=== PATIENT | male | born 1955 | race African-American/Black ===

== ENCOUNTER 2017-04-24 07:16 | Observation (INO) | payer BC ==
--- NOTE | ~2017-04-24 | OR ---
Unit #: [id number] #: [id number] Patient: ANSLEY QUINONEZ [id number] [address] [address] [id number] MR#: [id number] NAME: ANSLEY QUINONEZ ROOM: [id number] Date of Procedure: 04/24/2017 Admission Date: 04/24/2017 Surgeon: Mihir Ernst M.D. : 1955 Attending Physician: Mihir Ernst M.D. Primary Care Physician: Neda Campa M.D. OPERATIVE REPORT PREOPERATIVE DIAGNOSIS Large abscess, left upper inner thigh. POSTOPERATIVE DIAGNOSIS Large abscess, left upper inner thigh. PROCEDURES PERFORMED Incision and drainage of large abscess of left upper inner thigh with sharp excisional debridement of skin and subcutaneous tissue, 10 x 8 cm. ANESTHESIA General LMA anesthesia with 0.5% Marcaine plain local anesthesia. FINDINGS A large abscess was present with necrotic fat and indurated erythematous overlying tissue. Sharp excisional debridement of skin and subcutaneous tissues was performed with good hemostasis. SPECIMENS Sent to Microbiology. COMPLICATIONS None apparent. CONDITION The patient tolerated the procedure well. INDICATIONS FOR PROCEDURE The patient is a 61-year-old white male, who presents at this time with an abscess of the left upper inner thigh. He presents at this time for incision and drainage and possible debridement. DESCRIPTION OF PROCEDURE After obtaining informed consent as well as receiving antibiotics, the patient was brought to the operating room and after adequate general LMA anesthesia was obtained, the head was placed very carefully in the lithotomy position using candy-cane stirrups. All pressure points were carefully padded. All extremities were carefully manipulated. The patient's left upper inner thigh was prepped and draped in a sterile fashion. He has a small opening that was draining purulent material. This was probed with a hemostat in full extent and the direction of the abscess cavity was identified. This was opened with a scalpel and using Unit #: [id number] #: [id number] Patient: ANLSEY QUINONEZ electrocautery with good hemostasis. The patient had a large abscess cavity, which contained necrotic fatty tissue. This was sharply excised and debrided with a scalpel and then the electrocautery was used with good hemostasis. A 10 x 8 cm area was debrided of skin and subcutaneous tissue. Hemostasis was obtained with the Bovie. All areas were infiltrated with 0.5% Marcaine plain local anesthesia. The wound was irrigated. It was packed with a saline soaked Kerlix. A dry dressing was applied followed by ABD pad and mesh panties. Needle counts, sponge counts, and instrument counts were all correct as reported by the scrub nurse x2. The patient went from the operative room to the recovery room in stable condition. Dictated by... Jonathan Hoff/jose TD: 04/25/2017 03:43 JOB #: [id number] CC: [facility] OPERATIVE REPORT Page 1 of 1 X Mihir Ernst MD X PROCEDURE OPERATIVE NOTE
--- NOTE | ~2017-04-24 | EKG ---
PATIENT: ANSLEY QUINONEZ UNIT #: [id number] Ventricular Rate: 78 BPM Atrial Rate: 78 BPM P-R Interval: 146 ms QRS Duration: 100 ms Q-T Interval: 374 ms QTC Calculation(Bezet): 426 ms P [place]: 44 degrees Calculated R [place]: 100 degrees Calculated T [place]: 23 degrees Diagnosis Line: Normal sinus rhythm Diagnosis Line: Rightward axis Diagnosis Line: Low voltage QRS Diagnosis Line: RSR' or QR pattern in V1 suggests right Diagnosis Line: ventricular conduction delay Diagnosis Line: Borderline ECG Diagnosis Line: No previous ECGs available Diagnosis Line: Confirmed by CLIFF MEAD MD ([id number]) on Diagnosis Line: 04/25/2017 6:39:52 AM INTERPRETING MD: PAVITHRA
[2017-04-24] MEDS ORDERED: FORTAMET1000 MG PO (07:38)
[2017-04-24] MEDS ORDERED: ALLOPURINOL300 MG PO (07:39)
[2017-04-24] MEDS ORDERED: INDOMETHACIN25 MG PO (07:39)
[2017-04-24] MEDS ORDERED: PRAVASTATIN SOD40 MG PO (07:39)
[2017-04-24] MEDS ORDERED: AMARYL PO (07:40)
[2017-04-24] MEDS ORDERED: LOSARTAN POTASS50 MG PO (07:40)
[2017-04-24] MEDS ORDERED: LANTUS100 U/ML SUBQ (07:41)
[2017-04-24] MEDS ORDERED: FARXIGA5 MG PO (07:41)
[2017-04-24] MEDS ORDERED: VOLTAREN75 MG PO (07:41)
[2017-04-24 09:09] LABS: BUN/CREATININE RATIO 14.54; CALCIUM SERUM 8.8 mg/dL (8.4-10.2); CREATININE SERUM 1.1 mg/dL (0.6-1.4); GLOM FILT RATE Estimated 84.7 mL/min (>60); POTASSIUM 4.8 mmol/L (3.5-5.1)
[2017-04-25 04:24] LABS: BUN/CREATININE RATIO 14.16; CALCIUM SERUM 8.5 mg/dL (8.4-10.2); CREATININE SERUM 1.2 mg/dL (0.6-1.4); GLOM FILT RATE Estimated 76.3 mL/min (>60); POTASSIUM 5.1 mmol/L (3.5-5.1)
[2017-04-25] MEDS ORDERED: HYDROCODON-ACE1 EAC9 PO (08:10)
[2017-04-25] MEDS ORDERED: SALINE WOUND W210 M1 (08:10)
[2017-04-25] MEDS ORDERED: BACTRIM DS TAB1 EACH PO (08:11)
== END 2017-04-25 09:30 | disposition home or self-care (01) | DRG 603 ==
LOC: CSUR 07:16 → CPACUOF 10:50 → CSUR 11:04 → CPACUOF 15:56 → C4C 15:56
PROVIDERS: Surgery
DX: L02.416 Cutaneous abscess of left lower limb (principal); E11.9 Type 2 diabetes mellitus without complications; Z79.84 Long term (current) use of oral hypoglycemic drugs; Z79.4 Long term (current) use of insulin; I10 Essential (primary) hypertension; M10.9 Gout, unspecified
CPT/HCPCS: 80048; 82947; 87070; 87075; 87205; 93005; 96365; 96366; 96372; 96375; 96376; G0378; J1650; J1815; J2250; J2270; J2543; J3010; J3370